=== PATIENT | female | born 1935 | race African-American/Black ===

== ENCOUNTER 2018-04-26 00:25 | Emergency (ER) | payer MEDICARE ==
--- NOTE | 2018-04-26 01:43 | ER Document Report ---
ED General - General Chief Complaint: Abdominal Pain Stated Complaint: ABDOMINAL PAIN, UNBALANCED Time Seen by Provider: 04/26/18 01:16 Mode of Arrival: Ambulatory Information source: Relative, [facility] Records Cannot obtain history due to: Dementia Notes: 83-year-old female with hypertension, dementia, type 1 diabetes presents with her daughter who is concerned for weakness, a recent fall and patient's brief complaint of having "something sticking her stomach". At baseline patient is alert and oriented x1. Daughter reports that this is the patient's baseline. She states that just prior to arrival she heard a loud thud and found her mother on the bedroom floor. She was awake when she was found and attempting to get up. Daughter reports that it is a carpeted floor. Because of the patient's dementia she is unable to provide any history. Patient does have a history of recurrent UTIs with similar symptoms. Daughter denies any recent fever, cough, vomiting, diarrhea. Patient was asked multiple times if she was in pain and does not answer. She intermittently follows commands. She does move all 4 extremity's. TRAVEL OUTSIDE OF THE [place] IN LAST 30 DAYS: No - HPI Onset: Just prior to arrival Onset/Duration: Gradual Associated symptoms: Weakness. denies: Nonproductive cough, Productive cough, Diarrhea, Vomiting - Related Data Allergies/Adverse Reactions: No Known Allergies Allergy (Verified 04/26/18 01:23) Past Medical History - General Information source: Relative, [facility] Records - Social History Smoking Status: Never Smoker Frequency of alcohol use: None Drug Abuse: None Lives with: Family Family History: Reviewed & Not Pertinent Patient has suicidal ideation: No Patient has homicidal ideation: No - Past Medical History Cardiac Medical History: Reports: Hx Hypertension Endocrine Medical History: Reports: Hx Diabetes Mellitus Type 1 Renal/ Medical History: Denies: Hx Peritoneal Dialysis Past Surgical History: Reports: Hx Hysterectomy Review of Systems - Review of Systems -: Yes ROS unobtainable due to patient's medical condition Physical Exam - Vital signs Vitals: Temp Pulse Resp BP Pulse Ox 98.3 F 93 16 195/72 H 98 04/26/18 00:49 04/26/18 00:49 04/26/18 00:49 04/26/18 00:49 04/26/18 00:49 - Notes Notes: PHYSICAL EXAMINATION: GENERAL: Well-appearing, well-nourished and in no acute distress. HEAD: Atraumatic, normocephalic. EYES: Pupils equal round and reactive to light, extraocular movements intact, conjunctiva are normal. ENT: Nares patent, oropharynx clear without exudates. Moist mucous membranes. NECK: Normal range of motion, supple without lymphadenopathy. No midline tenderness. LUNGS: Breath sounds clear to auscultation bilaterally and equal. No wheezes rales or rhonchi. HEART: Regular rate and rhythm without murmurs ABDOMEN: Soft, nontender, nondistended abdomen. No guarding, no rebound. No masses appreciated. Female : deferred Musculoskeletal: Normal range of motion, no pitting or edema. No cyanosis. 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 PSYCH: Normal mood, normal affect. SKIN: Warm, Dry, normal turgor, no rashes or lesions noted. Course - Re-evaluation Re-evalutation: Laboratory 04/26/18 04/26/18 04/26/18 01:30 01:44 03:10 WBC 9.1 RBC 4.36 Hgb 11.7 L Hct 35.8 L MCV 82 MCH 26.9 L MCHC 32.7 RDW 14.9 H Plt Count 263 Seg Neutrophils % 63.4 Lymphocytes % 27.5 Monocytes % 7.5 Eosinophils % 0.5 Basophils % 1.1 Absolute Neutrophils 5.7 Absolute Lymphocytes 2.5 Absolute Monocytes 0.7 Absolute Eosinophils 0.0 Absolute Basophils 0.1 Sodium Potassium Chloride Carbon Dioxide Anion Gap BUN Creatinine Est GFR ( Amer) Est GFR (Non-Af Amer) Glucose POC Glucose 190 H Calcium Total Bilirubin Direct Bilirubin Neonat Total Bilirubin Neonat Direct Bilirubin Neonat Indirect Bili AST ALT Alkaline Phosphatase Creatine Kinase CK-MB (CK-2) Troponin I Total Protein Albumin Lipase Urine Color DARK YELLOW Urine Appearance CLOUDY Urine pH 5.0 Ur Specific Glenvil 1.014 Urine Protein 30 H Urine Glucose (UA) NEGATIVE Urine Ketones 20 H Urine Blood SMALL H Urine Nitrite NEGATIVE Urine Bilirubin NEGATIVE Urine Urobilinogen NEGATIVE Ur Leukocyte Esterase MODERATE H Urine WBC (Auto) 43 Urine RBC (Auto) 2 Urine Bacteria (Auto) 3+ Squamous Epi Cells Auto <1 Amorphous Sediment Auto TRACE Urine Mucus (Auto) RARE Urine Ascorbic Acid NEGATIVE 04/26/18 04/26/18 03:10 03:10 WBC RBC Hgb Hct MCV MCH MCHC RDW Plt Count Seg Neutrophils % Lymphocytes % Monocytes % Eosinophils % Basophils % Absolute Neutrophils Absolute Lymphocytes Absolute Monocytes Absolute Eosinophils Absolute Basophils Sodium 134.9 L Potassium 4.4 Chloride 99 Carbon Dioxide 25 Anion Gap 11 BUN 14 Creatinine 1.08 Est GFR ( Amer) 58 L Est GFR (Non-Af Amer) 48 L Glucose 183 H POC Glucose Calcium 9.7 Total Bilirubin 0.6 Direct Bilirubin 0.3 Neonat Total Bilirubin Not Reportable Neonat Direct Bilirubin Not Reportable Neonat Indirect Bili Not Reportable AST 19 ALT 18 Alkaline Phosphatase 82 Creatine Kinase 95 CK-MB (CK-2) < 0.22 Troponin I < 0.012 Total Protein 7.5 Albumin 3.9 Lipase 77.7 Urine Color Urine Appearance Urine pH Ur Specific Glenvil Urine Protein Urine Glucose (UA) Urine Ketones Urine Blood Urine Nitrite Urine Bilirubin Urine Urobilinogen Ur Leukocyte Esterase Urine WBC (Auto) Urine RBC (Auto) Urine Bacteria (Auto) Squamous Epi Cells Auto Amorphous Sediment Auto Urine Mucus (Auto) Urine Ascorbic Acid Cervical Spine CT 04/26/18 01:27 IMPRESSION: 1. No acute intracranial abnormality. 2. No acute fracture or subluxation of the cervical spine TECHNICAL DOCUMENTATION: Quality ID # 436: Final reports with documentation of one or more dose reduction techniques (e.g., Automated exposure control, adjustment of the mA and/or kV according to patient size, use of iterative reconstruction technique) 2010 [employer]- All Rights Reserved Head CT 04/26/18 01:27 IMPRESSION: 1. No acute intracranial abnormality. 2. No acute fracture or subluxation of the cervical spine TECHNICAL DOCUMENTATION: Quality ID # 436: Final reports with documentation of one or more dose reduction techniques (e.g., Automated exposure control, adjustment of the mA and/or kV according to patient size, use of iterative reconstruction technique) 2010 [employer]- All Rights Reserved Abdomen/Pelvis CT 04/26/18 01:28 IMPRESSION: No definite acute inflammatory process. No pneumonia. Chest X-Ray 04/26/18 01:28 IMPRESSION: Small left lower lobar pneumonia/atelectasis. Recommend CR/CT surveillance including at 7-12 weeks following initiation of any clinically warranted therapy. Chest CT 04/26/18 02:48 IMPRESSION: No definite acute inflammatory process. No pneumonia. Temp Pulse Resp BP Pulse Ox 98.3 F 93 11 L 198/78 H 98 04/26/18 00:49 04/26/18 00:49 04/26/18 04:04 04/26/18 01:20 04/26/18 04:04 04/26/18 02:50 83-year-old female with hypertension, dementia, type 1 diabetes presents with her daughter who is concerned for weakness, a recent fall and patient's brief complaint of having "something sticking her stomach". At baseline patient is alert and oriented x1. Daughter reports that this is the patient's baseline. She states that just prior to arrival she heard a loud thud and found her mother on the bedroom floor. She was awake when she was found and attempting to get up. Daughter reports that it is a carpeted floor. Because of the patient's dementia she is unable to provide any history. Patient does have a history of recurrent UTIs with similar symptoms. Daughter denies any recent fever, cough, vomiting, diarrhea. Patient was asked multiple times if she was in pain and does not answer. She intermittently follows commands. She does move all 4 extremity's. Vital signs reviewed and within normal limits. Patient is afebrile, mildly hypertensive, not hypoxic. Urinalysis consistent with urinary tract infection. Chest x-ray concerning for pneumonia/atelectasis and recommend CT chest. Patient presents with symptoms consistent with an acute cystitis. Vitals wnl. No history of fever, flank pain, or constitution symptoms to suggest ascending infection at this time. Patient is well in appearance, tolerating oral intake without difficulty. No focal abdominal tenderness to suggest acute appendicitis, biliary pathology, acute pancreatitis , tubo-ovarian abscesses, or pelvic inflammatory disease. Patient will be started on antibiotics at this time. A culture has been sent. They will be discharged with return precautions and follow-up recommendations. Patient ambulating throughout the department without difficulty. Patient was evaluated and treated as appropriate for the patient's presenting symptoms and complaint, with consideration of any critical or life threatening conditions that may be associated with their obtained history and exam as noted above. All results were discussed with patient and her daughter. Patient provided the opportunity to ask questions, and express concerns. Patient was educated on treatments based on their presumed diagnosis as noted above. At this time we will discharge the patient with return precautions and follow-up recommendations. Verbal discharge instructions given a the bedside. Medication warnings reviewed. Patient is in agreement with this plan and has verbalized understanding of return precautions. After careful consideration I feel that that patient can be safely discharged from the emergency department, they were advised to followup with a primary care physician in 2-3 days. Dictation on this chart was performed using voice recognition software and may result in unintended grammatical, spelling, syntax or errors. 04/26/18 02:50 04/26/18 03:55 04/26/18 04:43 04/26/18 04:47 - Vital Signs Vital signs: Temp Pulse Resp BP Pulse Ox 98.3 F 93 11 L 198/78 H 98 04/26/18 00:49 04/26/18 00:49 04/26/18 04:04 04/26/18 01:20 04/26/18 04:04 - Laboratory Result Diagrams: 04/26/18 03:10 04/26/18 03:10 Laboratory results interpreted by me: 04/26/18 04/26/18 04/26/18 01:30 01:44 03:10 Hgb 11.7 L Hct 35.8 L MCH 26.9 L RDW 14.9 H Sodium Est GFR ( Amer) Est GFR (Non-Af Amer) Glucose POC Glucose 190 H Urine Protein 30 H Urine Ketones 20 H Urine Blood SMALL H Ur Leukocyte Esterase MODERATE H 04/26/18 03:10 Hgb Hct MCH RDW Sodium 134.9 L Est GFR ( Amer) 58 L Est GFR (Non-Af Amer) 48 L Glucose 183 H POC Glucose Urine Protein Urine Ketones Urine Blood Ur Leukocyte Esterase - Diagnostic Test Radiology reviewed: Image reviewed, Reports reviewed - EKG Interpretation by Me EKG shows normal: Sinus rhythm Rate: Normal Rhythm: NSR Voltage: Increased voltage - T wave inversion in lead III., Consistant with LVH When compared to previous EKG there are: Previous EKG unavailable Discharge - Discharge Clinical Impression: UTI (urinary tract infection) Qualifiers: Urinary tract infection type: site unspecified Hematuria presence: with hematuria Qualified Code(s): N39.0 - Urinary tract infection, site not specified Hypertension Qualifiers: Hypertension type: unspecified Qualified Code(s): I10 - Essential (primary) hypertension Dementia Qualifiers: Dementia type: unspecified type Dementia behavioral disturbance: without behavioral disturbance Qualified Code(s): F03.90 - Unspecified dementia without behavioral disturbance Fall Qualifiers: Encounter type: initial encounter Qualified Code(s): W19.XXXA - Unspecified fall, initial encounter Condition: Good Disposition: HOME, SELF-CARE Instructions: Dementia ([facility]), Urinary Tract Infection ([facility]) Additional Instructions: Your urine shows findings consistent with a urinary tract infection. Please take all the antibiotics as directed even if your symptoms have improved. Please follow-up with your primary care physician as needed. Return to emergency room if you develop fever >101F, persistent vomiting, become lethargic , have severe pain in your sides, or any other symptoms that are concerning to you. You have been seen in the Emergency Department (ED) today following a fall. Your workup today did not reveal any injuries that require you to stay in the hospital. You can expect, though, to be stiff and sore for the next several days. You can take Tylenol 1000 mg every 6 hours as needed for pain. You can apply a hot pack or electric heating pad to the sore areas. You can also use topical "Aspercreme with lidocaine" to sore areas as needed. Please follow up with your primary care doctor as soon as possible regarding today's ED visit and your recent fall. Call your doctor or return to the ED if you develop a sudden or severe headache , confusion, slurred speech, facial droop, weakness or numbness in any arm or leg, extreme fatigue, vomiting more than two times, severe abdominal pain, or other symptoms that concern you. Prescriptions: Cephalexin Monohydrate [Keflex 500 mg Capsule] 500 mg PO BID 7 Days #14 capsule Forms: Elevated Blood Pressure Referrals: LILLY SOTO MD [Primary Care Provider] - Follow up in 3-5 days
[2018-04-26 02:09] LABS: AMORPHOUS SEDIMENT,URINE TRACE /HPF; APPEARANCE,URINE CLOUDY; BILIRUBIN,URINE NEGATIVE (NEGATIVE); COLOR,URINE DARK YELLOW; GLUCOSE, URINE NEGATIVE (NEGATIVE); KETONES,URINE 20 mg/dL (NEGATIVE); LEUKOCYTE ESTERASE,URINE MODERATE (NEGATIVE); NITRITE,URINE NEGATIVE (NEGATIVE); PROTEIN,URINE 30 mg/dL (NEGATIVE); URINE SPECIFIC GRAVITY 1.014; UROBILINOGEN,URINE NEGATIVE mg/dL (<2.0)
[2018-04-26] MEDS ORDERED: NORMAL SALINE 500 ML IV ONE (02:14)
[2018-04-26] MEDS ORDERED: CEFTRIAXONE 1 GM/D5W RTU 1 GM/50 ML RTUPB IV ONE (02:14)
--- NOTE | 2018-04-26 02:37 | RADIOLOGY REPORT (SQ) ---
EXAM DESCRIPTION: XR CHEST 2 VIEWS COMPLETED DATE/TME: 04/26/2018 01:28 CLINICAL HISTORY: 83 years Female, weakness COMPARISON: None. FINDINGS: Adequate lung volume, elevated left hemidiaphragm, small patchy opacity at the left lateral lung base, prominent interstitium, normal cardiac silhouette, and intact bony thorax. IMPRESSION: Small left lower lobar pneumonia/atelectasis. Recommend CR/CT surveillance including at 7-12 weeks following initiation of any clinically warranted therapy.
[2018-04-26] MEDS ORDERED: DOXYCYCLINE HYCLATE 100 MG TABLET PO ONE (02:45)
--- NOTE | 2018-04-26 02:55 | RADIOLOGY REPORT (SQ) ---
EXAM DESCRIPTION: CT CERVICAL SPINE WITHOUT IV CONTRAST, CT HEAD WITHOUT IV CONTRAST COMPLETED DATE/TME: 04/26/2018 01:27 CLINICAL HISTORY: 83 years, Female, fall COMPARISON: None. TECHNIQUE: Axial CT images of the head were obtained without contrast. Sagittal and coronal reformats were performed. DLP 979. Axial CT images of the cervical spine were obtained without contrast. Sagittal and coronal reformats were performed. DLP 551 Images stored on PACS. All CT scanners at this facility use dose modulation, iterative reconstruction, and/or weight based dosing when appropriate to reduce radiation dose to as low as reasonably achievable (ALARA). [facility]: Dose Right [facility]: CareDose [facility]: Dose Right [facility]: Teradose 4D [facility]: [email or web address] LIMITATIONS: None. FINDINGS: CT head: There is no acute infarct, hemorrhage, mass, edema, hydrocephalus, or extra-axial fluid collection. There is mild diffuse cerebral atrophy with mild periventricular and deep white matter chronic microvascular changes. The paranasal sinuses and mastoid air cells are clear. There is no acute fracture. CT C spine: The alignment of the cervical spine is satisfactory. There is no acute fracture or subluxation. The vertebral heights are maintained. The craniocervical junction is intact. There is multilevel facet arthropathy with multilevel neural foraminal narrowing, most notably on the left at C3-C4 with mild narrowing at this level secondary to facet arthropathy. There is also mild narrowing on the right at C3-C4, C4-C5, and C5-C6 secondary to facet arthropathy. The prevertebral soft tissues are normal. The visualized lung apices are clear. IMPRESSION: 1. No acute intracranial abnormality. 2. No acute fracture or subluxation of the cervical spine TECHNICAL DOCUMENTATION: Quality ID # 436: Final reports with documentation of one or more dose reduction techniques (e.g., Automated exposure control, adjustment of the mA and/or kV according to patient size, use of iterative reconstruction technique) 2010 [employer]- All Rights Reserved
[2018-04-26 03:35] LABS: ABSOLUTE BASOPHILS # (AUTO) 0.1 10^3/uL (0.0-0.2); ABSOLUTE LYMPHOCYTES (AUTO) 2.5 10^3/uL (0.5-4.7); ABSOLUTE MONOCYTES (AUTO) 0.7 10^3/uL (0.1-1.4); ABSOLUTE NEUT (AUTO) 5.7 10^3/uL (1.7-8.2); BASOPHILS % (AUTO) 1.1 % (0-2); EOSINOPHILS % (AUTO) 0.5 % (0-6); HEMATOCRIT 35.8 % (36.0-47.0); HEMOGLOBIN 11.7 g/dL (12.0-15.5); LYMPHOCYTES % (AUTO) 27.5 % (13-45); MEAN CORPUSCULAR HEMOGLOBIN 26.9 pg (27.0-33.4); MEAN CORPUSCULAR HGB CONC 32.7 g/dL (32.0-36.0); MEAN CORPUSCULAR VOLUME 82 fl (80-97); MONOCYTES % (AUTO) 7.5 % (3-13); PLATELET COUNT 263 10^3/uL (150-450); RED BLOOD COUNT 4.36 10^6/uL (3.72-5.28); RED CELL DISTRIBUTION WIDTH 14.9 % (11.5-14.0); SEGMENTED NEUTROPHILS % (AUTO) 63.4 % (42-78); TOTAL CELLS COUNTED % (AUTO) 100 %; WHITE BLOOD COUNT 9.1 10^3/uL (4.0-10.5)
[2018-04-26 03:37] LABS: ALANINE AMINOTRANSFERASE 18 U/L (9-52); ALBUMIN 3.9 g/dL (3.5-5.0); ALKALINE PHOSPHATASE 82 U/L (38-126); ANION GAP 11 (5-19); ASPARTATE AMINO TRANSFERASE 19 U/L (14-36); BILIRUBIN,DIRECT 0.3 mg/dL (0.0-0.4); BILIRUBIN,TOTAL 0.6 mg/dL (0.2-1.3); BLOOD UREA NITROGEN 14 mg/dL (7-20); CALCIUM 9.7 mg/dL (8.4-10.2); CARBON DIOXIDE 25 mmol/L (22-30); CHLORIDE 99 mmol/L (98-107); CREATINE KINASE 95 U/L (30-135); GLUCOSE 183 mg/dL (75-110); LIPASE 77.7 U/L (23-300); POTASSIUM 4.4 mmol/L (3.6-5.0); SODIUM 134.9 mmol/L (137-145); TOTAL PROTEIN 7.5 g/dL (6.3-8.2)
[2018-04-26 03:53] LABS: CREATINE KINASE MB < 0.22 ng/mL (<4.55); TROPONIN I < 0.012 ng/mL
--- NOTE | 2018-04-26 04:24 | RADIOLOGY REPORT (SQ) ---
CLINICAL HISTORY: ?pneumonia COMPARISON: None. TECHNIQUE: CT CHEST WITH IV CONTRAST, CT ABDOMEN PELVIS WITH IV CONTRAST on 04/26/2018 2:48 AM [employer] TECHNICIAN. MIPS reconstructions were generated. This exam was performed according to our departmental dose-optimization program, which includes automated exposure control, adjustment of the mA and/or kV according to patient size and/or use of iterative reconstruction technique. FINDINGS: Vascular: Thoracic aorta is normal in course and caliber without aneurysm or dissection. Abdominal aorta is normal in course and caliber without aneurysm. Pelvic arteries are patent without aneurysm or occlusion. Chest: The heart is normal in size. There is no pericardial effusion. Intrathoracic lymph nodes are not enlarged. There is no pleural effusion, pleural thickening or pneumothorax. Central airways are patent. There is mild bibasilar atelectasis and scarring. Abdomen: The liver is normal in appearance. There is no biliary dilatation. Gallbladder is normal in appearance. The pancreas and spleen are normal in appearance. The adrenal glands and kidneys are unremarkable. There is no free air. There is no retroperitoneal adenopathy. Pelvis: There is moderate distal colonic diverticulosis. Urinary bladder is unremarkable. There is no free fluid. Appendix is normal. Skeleton: There are no acute osseous findings. No suspicious bony lesions. IMPRESSION: No definite acute inflammatory process. No pneumonia.
[2018-04-26 05:23] VITALS: BP 192/83
--- NOTE | 2018-04-26 07:40 | EKG REPORT ---
SEVERITY:- ABNORMAL ECG - SINUS RHYTHM LEFT VENTRICULAR HYPERTROPHY BORDERLINE T ABNORMALITIES, INFERIOR LEADS : Confirmed by: Pranav Meyer MD 26-Apr-2018 07:39:38
== END 2018-04-26 04:23 | disposition home or self-care (01) ==
LOC: ER 00:25
DX: Z04.3 Encounter for examination and observation following other accident (principal); N39.0 Urinary tract infection, site not specified; R31.9 Hematuria, unspecified; I10 Essential (primary) hypertension; E10.9 Type 1 diabetes mellitus without complications; R53.1 Weakness; R19.8 Other specified symptoms and signs involving the digestive system and abdomen; F03.90 Unspecified dementia, unspecified severity, without behavioral disturbance, psychotic disturbance, mood disturbance, and anxiety
CPT/HCPCS: 93005; 99285; 96361; 51701; 96365; 36415; 87040; 82553; 82962; 82550; 83690; 85025; 80053; 81001; 84484; 71046; 70450; 71260; 72125; 74177; 93010; A9270; J7040; J0696

== ENCOUNTER 2018-05-11 09:08 | Inpatient (IN) | payer MEDICARE ==
[2018-05-11] MEDS ORDERED: PIPERACILLIN/TAZOBACTAM 4.5 GM VIAL IV ONE (09:26)
[2018-05-11] MEDS ORDERED: NORMAL SALINE 1000 ML 1,000 ML IV ONE (09:26)
[2018-05-11 11:01] LABS: APPEARANCE,URINE CLEAR; BILIRUBIN,URINE NEGATIVE (NEGATIVE); COLOR,URINE YELLOW; GLUCOSE, URINE 50 mg/dL (NEGATIVE); KETONES,URINE 20 mg/dL (NEGATIVE); LEUKOCYTE ESTERASE,URINE LARGE (NEGATIVE); NITRITE,URINE NEGATIVE (NEGATIVE); PROTEIN,URINE 30 mg/dL (NEGATIVE); URINE SPECIFIC GRAVITY 1.023
[2018-05-11 11:12] LABS: ABSOLUTE BASOPHILS # (AUTO) 0.1 10^3/uL (0.0-0.2); ABSOLUTE EOSINOPHILS # (AUTO) 0.2 10^3/uL (0.0-0.6); ABSOLUTE LYMPHOCYTES (AUTO) 2.3 10^3/uL (0.5-4.7); ABSOLUTE MONOCYTES (AUTO) 0.8 10^3/uL (0.1-1.4); BASOPHILS % (AUTO) 0.5 % (0-2); EOSINOPHILS % (AUTO) 2.2 % (0-6); HEMATOCRIT 40.1 % (36.0-47.0); HEMOGLOBIN 13.1 g/dL (12.0-15.5); LYMPHOCYTES % (AUTO) 22.2 % (13-45); MEAN CORPUSCULAR HEMOGLOBIN 26.8 pg (27.0-33.4); MEAN CORPUSCULAR HGB CONC 32.7 g/dL (32.0-36.0); MEAN CORPUSCULAR VOLUME 82 fl (80-97); MONOCYTES % (AUTO) 7.9 % (3-13); PLATELET COUNT 362 10^3/uL (150-450); RED BLOOD COUNT 4.91 10^6/uL (3.72-5.28); SEGMENTED NEUTROPHILS % (AUTO) 67.2 % (42-78); TOTAL CELLS COUNTED % (AUTO) 100 %; WHITE BLOOD COUNT 10.4 10^3/uL (4.0-10.5)
[2018-05-11 11:13] LABS: VENOUS BLOOD BASE EXCESS -1.1 mmol/L; VENOUS BLOOD HCO3 25.3 mmol/L (20-32); VENOUS BLOOD PCO2 48.7 mmHg (35-63); VENOUS BLOOD PH 7.33 (7.30-7.42)
--- NOTE | 2018-05-11 11:23 | ER Document Report ---
ED General - General Chief Complaint: Altered Mental Status Stated Complaint: AMS Time Seen by Provider: 05/11/18 09:26 Mode of Arrival: Medic Information source: Relative Cannot obtain history due to: Altered mental status TRAVEL OUTSIDE OF THE [place] IN LAST 30 DAYS: No - HPI Patient complains to provider of: Weakness Onset: Other - 83-year-old female that presents for evaluation of unresponsiveness over the last 3 days as well as inability to move or walk and communicate. She had previously been seen for urinary tract infection for which she had been discharged home but thereafter she was seen doing okay and then 3 days ago she stopped being able to get a bed. Her son notes that she has not been able to talk, has a minimal take her medications, has not available to help with transfers. - Related Data Allergies/Adverse Reactions: No Known Allergies Allergy (Verified 05/11/18 11:45) Past Medical History - General Information source: Relative Cannot obtain history due to: Altered mental status - Social History Smoking Status: Never Smoker Chew tobacco use (# tins/day): Yes Frequency of alcohol use: None Drug Abuse: None Family History: Reviewed & Not Pertinent Patient has suicidal ideation: No Patient has homicidal ideation: No - Past Medical History Cardiac Medical History: Reports: Hx Hypertension Endocrine Medical History: Reports: Hx Diabetes Mellitus Type 1 Renal/ Medical History: Denies: Hx Peritoneal Dialysis Past Surgical History: Reports: Hx Hysterectomy Review of Systems - Review of Systems -: Yes ROS unobtainable due to patient's medical condition Physical Exam - Vital signs Vitals: Resp BP Pulse Ox 22 H 182/75 H 97 05/11/18 09:22 05/11/18 09:22 05/11/18 09:22 - General General appearance: Lethargic In distress: Moderate - HEENT Head: Normocephalic Eyes: Other - Profound right gaze deviation Conjunctiva: Normal Cornea: Normal Extraocular movements intact: No - Right gaze deviation Pupils: PERRL - Respiratory Respiratory status: No respiratory distress Chest status: Nontender Breath sounds: Normal - Cardiovascular Rhythm: Regular Heart sounds: Normal auscultation - Abdominal Inspection: Normal Bowel sounds: Normal Tenderness: Nontender - Back Back: Normal - Extremities General upper extremity: Normal inspection, Other - 0 out of 5 strength in the left upper extremity 0 out of 5 strength in the left lower extremity General lower extremity: Normal inspection - Neurological Neuro grossly intact: No Cognition: Inattentive Orientation: Disoriented to person, Disoriented to place, Disoriented to time, Disoriented to events [place] Coma Scale Eye Opening: Spontaneous [place] Coma Scale Verbal: Incomprehensible [place] Coma Scale Motor: Localizes to Pain [place] Coma Scale Total: 11 Speech: Expressive aphasia, Receptive aphasia Cranial nerves: Gaze palsy, Sensory deficit, Tongue deviation Motor strength normal: RUE, RLE - Psychological Associated symptoms: Confused, Restlessness Course - Re-evaluation Re-evalutation: 05/11/18 16:12 This is an 83-year-old female who presents for evaluation of altered mental status. Have been treated for urinary tract infection previously and over the last 3 days has been unable to walk or move or communicate normally. On initial evaluation this patient has an obvious profound gaze deviation to the right with flaccid paralysis of the left side consistent with a dense right- sided MCA territory CVA. Sent immediately for CAT scan, her last known normal is at least 72 hours prior. Given her profound cognitive issues including dementia as well as ongoing infections at baseline as well as her age she is a poor candidate for any lytic therapy, and speaking to the son he notes that she has been sick exactly like this over the last 3 days though because she was continuing to be weak today he decided to bring her to the emergency room. We will also obtain labs in case of potential developing infectious symptoms related to this, will administer Zosyn for her possible urinary tract infection. Due to issues relating to radiology reporting there was a slight delay in obtaining CT results for the head which confirmed right-sided CVA with near total loss of the castellano matter on the right hemisphere. Because of this patient's profound deficits as well as inability to communicate at this time will speak to the hospitalist as I think she would benefit from admission, did speak to the family about CODE STATUS, they do not have a known CODE STATUS at this time. At this time the patient is hemodynamically stable with a slight elevation in her blood pressure likely appropriate for her known CVA. On-call hospitalist Dr. Dueñas has agreed to admit this patient for further ongoing management and monitoring. We will plan for this patient to go likely to a stepdown unit for concern of potential repeat CVA. At this time she is n.p.o. given her marked deficits and concern for aspiration risk. - Vital Signs Vital signs: Temp Pulse Resp BP Pulse Ox 97.7 F 74 16 190/67 H 98 05/11/18 15:11 05/11/18 15:22 05/11/18 15:22 05/11/18 15:22 05/11/18 15:22 - Laboratory Result Diagrams: 05/11/18 10:59 05/11/18 10:59 Laboratory results interpreted by me: 05/11/18 05/11/18 05/11/18 10:02 10:25 10:59 MCH 26.8 L RDW 15.0 H Est GFR (Non-Af Amer) Glucose POC Glucose 126 H Lactic Acid AST Total Protein Urine Protein 30 H Urine Glucose (UA) 50 H Urine Ketones 20 H Urine Blood SMALL H Urine Urobilinogen 2.0 H Ur Leukocyte Esterase LARGE H 05/11/18 05/11/18 10:59 10:59 MCH RDW Est GFR (Non-Af Amer) 51 L Glucose 150 H POC Glucose Lactic Acid 2.2 H AST 60 H Total Protein 8.8 H Urine Protein Urine Glucose (UA) Urine Ketones Urine Blood Urine Urobilinogen Ur Leukocyte Esterase Discharge - Discharge Clinical Impression: Hemineglect, Aphasia CVA (cerebral vascular accident) Qualifiers: CVA mechanism: unspecified Qualified Code(s): I63.9 - Cerebral infarction, unspecified Hypertension Qualifiers: Hypertension type: unspecified Qualified Code(s): I10 - Essential (primary) hypertension UTI (urinary tract infection) Qualifiers: Urinary tract infection type: site unspecified Hematuria presence: without hematuria Qualified Code(s): N39.0 - Urinary tract infection, site not specified Condition: Serious Disposition: ADMITTED INPATIENT Admitting Provider: Hospitalist Unit Admitted: IMCU
[2018-05-11 11:38] LABS: ALANINE AMINOTRANSFERASE 35 U/L (9-52); ALBUMIN 4.4 g/dL (3.5-5.0); ALKALINE PHOSPHATASE 110 U/L (38-126); ANION GAP 15 (5-19); ASPARTATE AMINO TRANSFERASE 60 U/L (14-36); BILIRUBIN,DIRECT 0.4 mg/dL (0.0-0.4); BILIRUBIN,TOTAL 0.7 mg/dL (0.2-1.3); BLOOD UREA NITROGEN 19 mg/dL (7-20); CALCIUM 10.1 mg/dL (8.4-10.2); CARBON DIOXIDE 24 mmol/L (22-30); CHLORIDE 103 mmol/L (98-107); GLUCOSE 150 mg/dL (75-110); POTASSIUM 4.6 mmol/L (3.6-5.0); SODIUM 142.2 mmol/L (137-145); TOTAL PROTEIN 8.8 g/dL (6.3-8.2)
--- NOTE | 2018-05-11 12:12 | RADIOLOGY REPORT (SQ) ---
EXAM DESCRIPTION: CT HEAD WITHOUT COMPLETED DATE/TIME: 05/11/2018 9:28 am REASON FOR STUDY: stroke, right sided motor strip COMPARISON: 04/26/2018 TECHNIQUE: Axial images acquired through the brain without intravenous contrast. Images reviewed wi th bone, brain and subdural windows. Additional sagittal and coronal reconstructions were generated. Images stored on PACS. All CT scanners at this facility use dose modulation, iterative reconstruction, and/or weight based d osing when appropriate to reduce radiation dose to as low as reasonably achievable (ALARA). [facility]: Dose Right [facility]: CareDose [facility]: Dose Right [facility]: Teradose 4D [facility]: [email or web address] RADIATION DOSE: mGy. LIMITATIONS: None. FINDINGS: VENTRICLES: Mildly prominent compatible with parenchymal atrophy. CEREBRUM: There is a large area of hypoattenuation involving the right MCA territory (right frontal, parietal, occipital lobes and basal ganglia). There is associated patchy areas of loss of castellano-white differentiation compatible with acute infarct. No significant mass effect or midline shift. No bowen dence of intracranial or intraparenchymal blood products. CEREBELLUM: No masses. No hemorrhage. No alteration of density. No evidence for acute infarction. EXTRAAXIAL SPACES: No fluid collections. No masses. ORBITS AND GLOBE: No intra- or extraconal masses. Normal contour of globe without masses. Bilateral cataract surgery. CALVARIUM: No fracture. PARANASAL SINUSES: No fluid or mucosal thickening. SOFT TISSUES: No mass or hematoma. OTHER: No other significant finding. IMPRESSION: Large area of hypoattenuation involving the right MCA territory compatible with acute in farct. No evidence of intracranial hemorrhage or significant mass effect. EVIDENCE OF ACUTE STROKE: YES. RIGHT MCA. COMMENT: Pertinent findings on the imaging study reported as a CRITICAL RESULT to Dr. Henley at10:11 on 05/11/2018. Category of Critical Result: Acute infarct, right MCA territory Quality ID # [id number]: Final reports with documentation of one or more dose reduction techniques (e.g., Au tomated exposure control, adjustment of the mA and/or kV according to patient size, use of iterative reconstruction technique) TECHNICAL DOCUMENTATION: JOB ID: [id number] [email or web address]- All Rights Reserved Reading location - IP/workstation name: [email or web address]
--- NOTE | 2018-05-11 12:12 | RADIOLOGY REPORT (SQ) ---
EXAM DESCRIPTION: CHEST SINGLE VIEW COMPLETED DATE/TIME: 05/11/2018 9:28 am REASON FOR STUDY: sepsis COMPARISON: 04/26/2018 EXAM PARAMETERS: NUMBER OF VIEWS: One view. TECHNIQUE: Single frontal radiographic view of the chest acquired. RADIATION DOSE: NA LIMITATIONS: None. FINDINGS: LUNGS AND PLEURA: Left base mild parenchymal density, may represent infiltrate/atelectasi s. The right lung remains clear. No pneumothorax or pleural effusion. MEDIASTINUM AND HILAR STRUCTURES: No masses. Contour normal. HEART AND VASCULAR STRUCTURES: Heart normal in size. Normal vasculature. BONES: No acute findings. HARDWARE: None in the chest. OTHER: No other significant finding. IMPRESSION: 1. Mild parenchymal density in the left base, may be on the basis of infiltrate/atelect asis. This finding was also suggested on the prior study dated 04/26/2018. TECHNICAL DOCUMENTATION: JOB ID: [id number] [employer]- All Rights Reserved Reading location - IP/workstation name: [email or web address]
[2018-05-11] MEDS ORDERED: LABETALOL HCL INJ 20 MG/4 ML DISP.SYRIN IV PRN (12:45)
[2018-05-11] MEDS ORDERED: DEXTROSE 50%-WATER 25 GM/50 ML DISP.SYRIN IV PRN ×2 (12:45)
[2018-05-11] MEDS ORDERED: DEXTROSE 40% GEL 15 GM TUBE PO PRN ×2 (12:45)
[2018-05-11] MEDS ORDERED: GLUCAGON,HUMAN RECOMB 1 MG INJ SUBCUT PRN (12:45)
--- NOTE | 2018-05-11 13:08 | EKG REPORT ---
SEVERITY:- ABNORMAL ECG - SINUS RHYTHM CONSIDER LEFT VENTRICULAR HYPERTROPHY PROBABLE INFERIOR INFARCT, AGE INDETERMINATE : Confirmed by: Zahira Le MD 11-May-2018 13:08:06
[2018-05-11] MEDS: RINGERS SOLUTION,LACTATED 1,000 ML IV PRN (13:57)
[2018-05-11 14:07] LABS: INTERNATIONAL RATION (INR) 1.04; PROTHROMBIN TIME 14.1 SEC (11.4-15.4)
--- NOTE | 2018-05-11 17:11 | PDOC H&P ---
History of Present Illness Admission Date/PCP: 05/11/18 12:18 LILLY SOTO MD History of Present Illness: POLLY PRINCE is a 83 year old female who lives at home with her son and gets help from her family who apparently has not been acting right for the last few days. She apparently has not been walking has not been able to move her left side very well. Her speech is gotten worse. She apparently has been able to eat through all of this. She is a diabetic who does not take her medicine. She also has hypertension and does not take her medicine for that. Family does not know of any history of stroke that she has. A CT scan was done of her head which shows a large right MCA territory infarct that occupies nearly the entire right cerebral hemisphere. Family has decided that they do not want to be aggressive because she would not take any medication anyway. They would just like to have her evaluated by physical therapy and speech therapy to see what her present level of function is and to know what she can and cannot eat, and also to have case management help coordinate any DME or services she could get at home. They wanted her to be a DNR. Past Medical History Cardiac Medical History: Reports: Hypertension Endocrine Medical History: Reports: Diabetes Mellitus Type 1 Past Surgical History Past Surgical History: Reports: Hysterectomy Social History Smoking Status: Never Smoker Frequency of Alcohol Use: Occasional Hx Recreational Drug Use: Yes Drugs: None Hx Prescription Drug Abuse: No - Advance Directive Resuscitation Status: Do Not Resuscitate Family History Family History: Reviewed & Not Pertinent Parental Family History Reviewed: Yes - Noncontributory Children Family History Reviewed: Yes - Noncontributory Sibling(s) Family History Reviewed.: Yes - Noncontributory Medication/Allergy Home Medications: No Home Medications 05/11/18 Allergies/Adverse Reactions: No Known Allergies Allergy (Verified 05/11/18 11:45) Review of Systems ROS unobtainable: Other - Unable to obtain from the patient due to her current medical condition and degree of aphasia Physical Exam Vital Signs: Temp Pulse Resp BP Pulse Ox 97.7 F 74 16 190/67 H 98 05/11/18 15:11 05/11/18 15:22 05/11/18 15:22 05/11/18 15:22 05/11/18 15:22 Intake & Output 05/10/18 05/11/18 05/12/18 06:59 06:59 06:59 Intake Total 1000 Balance 1000 Weight 72.8 kg General appearance: PRESENT: no acute distress, disheveled Head exam: PRESENT: atraumatic, normocephalic Eye exam: PRESENT: EOMI. ABSENT: conjunctival injection, nystagmus Mouth exam: PRESENT: dry mucosa, neck supple Teeth exam: PRESENT: poor dentation Neck exam: ABSENT: carotid bruit, JVD, lymphadenopathy, meningismus, tenderness , thyromegaly Respiratory exam: PRESENT: clear to auscultation adolfo, symmetrical, unlabored. ABSENT: accessory muscle use, rales, rhonchi, tachypnea, wheezes Cardiovascular exam: PRESENT: RRR, +S1, +S2 Vascular exam: PRESENT: normal capillary refill GI/Abdominal exam: PRESENT: normal bowel sounds, soft. ABSENT: distended, guarding, rebound, tenderness Extremities exam: ABSENT: clubbing, pedal edema Musculoskeletal exam: PRESENT: normal inspection. ABSENT: deformity Neurological exam: PRESENT: awake, motor sensory deficit - Cannot move her left side and seems to be neglecting it because she consistently looks to the right and keep her head turned to the right, aphasic. ABSENT: CN II-XII grossly intact - Could not adequately assessed because of her inability to cooperate Psychiatric exam: PRESENT: flat affect Skin exam: PRESENT: dry, warm Results Laboratory Results: 05/11/18 16:00 Lactic Acid 1.7 Impressions: Chest X-Ray 05/11/18 09:26 IMPRESSION: 1. Mild parenchymal density in the left base, may be on the basis of infiltrate/atelectasis. This finding was also suggested on the prior study dated 04/26/2018. Head CT 05/11/18 09:27 IMPRESSION: Large area of hypoattenuation involving the right MCA territory compatible with acute infarct. No evidence of intracranial hemorrhage or significant mass effect. EVIDENCE OF ACUTE STROKE: YES. RIGHT MCA. Assessment & Plan - Diagnosis (1) Acute ischemic right MCA stroke Is this a current diagnosis for this admission?: Yes Plan: Family does not want to be aggressive with her care. They declined to have her treated with an aspirin and a statin because they said she would not take medicine anyway. She has not been taking her blood pressure medicine or her diabetes medicine in months. I put him mortars for some as needed labetalol with parameters. Family does not want any further workup done. They they want to see if she can be evaluated by PT, OT, and ST, and also to see if case management can help them obtain any DME to help take care of her at home and to see what other services, if any, are available. - Time Time Spent: 50 to 70 Minutes - Inpatient Certification Medical Necessity: Need Close Monitoring Due to Risk of Patient Decompensation, Need for Neurological Checks
[2018-05-12] MEDS: RINGERS SOLUTION,LACTATED 1,000 ML IV PRN ×2 (02:11→15:57)
--- NOTE | 2018-05-12 15:58 | PDOC PROGRESS REPORT ---
Subjective Progress Note for:: 05/12/18 Subjective:: Patient's family thinks that she is doing a little bit worse today. Her blood pressures have been up and down. Family says that now she is not even trying to talk at all. Physical therapy came to evaluate her and while I can see exactly the results of the evaluation, I suspect she did not do very well. Speech therapy saw her and she was not able to work with them at all, and they said that she is not safe for any p.o. intake. We tried to give her some sips of water earlier and she immediately began coughing afterwards. Reason For Visit: ACUTE RIGHT MCA ISCHEMIC STROKE Physical Exam Vital Signs: Temp Pulse Resp BP Pulse Ox 98.2 F 62 16 174/59 H 100 05/12/18 12:11 05/12/18 14:00 05/12/18 12:11 05/12/18 12:11 05/12/18 12:11 Intake & Output 05/11/18 05/12/18 05/13/18 06:59 06:59 06:59 Intake Total 1916 Balance 191 Weight 72.6 kg General appearance: PRESENT: no acute distress, disheveled Respiratory exam: PRESENT: clear to auscultation adolfo, symmetrical, unlabored. ABSENT: accessory muscle use, rales, rhonchi, tachypnea, wheezes Cardiovascular exam: PRESENT: RRR, +S1, +S2 Vascular exam: PRESENT: normal capillary refill GI/Abdominal exam: PRESENT: normal bowel sounds, soft. ABSENT: distended, guarding, rebound, tenderness Extremities exam: ABSENT: clubbing, pedal edema Musculoskeletal exam: PRESENT: normal inspection. ABSENT: deformity Neurological exam: PRESENT: awake, motor sensory deficit - Cannot move her left side and seems to be neglecting it because she consistently looks to the right and keep her head turned to the right, aphasic. Skin exam: PRESENT: dry, warm Results Laboratory Results: 05/11/18 16:00 Lactic Acid 1.7 Impressions: Chest X-Ray 05/11/18 09:26 IMPRESSION: 1. Mild parenchymal density in the left base, may be on the basis of infiltrate/atelectasis. This finding was also suggested on the prior study dated 04/26/2018. Head CT 05/11/18 09:27 IMPRESSION: Large area of hypoattenuation involving the right MCA territory compatible with acute infarct. No evidence of intracranial hemorrhage or significant mass effect. EVIDENCE OF ACUTE STROKE: YES. RIGHT MCA. Assessment & Plan - Diagnosis (1) Acute ischemic right MCA stroke Is this a current diagnosis for this admission?: Yes Plan: Her symptoms seem to be progressing, because at least yesterday she would attempt to mumble and she was able to drink from a straw. Today she makes no attempt to communicate, and she is unable to safely take p.o. Family does not want to be aggressive with her care because they have not been able to get any medications into her home they do not think that she be able to, or willing to, take any oral medications. If she does not show any signs of improvement, a conversation should be had about hospice, and I think that the family will be receptive. - Time Time Spent with patient: 15-24 minutes
[2018-05-13] MEDS: RINGERS SOLUTION,LACTATED 1,000 ML IV PRN (06:03)
--- NOTE | 2018-05-13 18:44 | PDOC PROGRESS REPORT ---
Subjective Progress Note for:: 05/13/18 Subjective:: Patient is unable to speak after stroke. I spoke with her daughter who is at the bedside and also her son. The patient lives with her daughter in the local area. She has suffered a large right sided CVA and has left hemiparesis. She has failed her swallow study. She is unable to really do anything on her own at this point. She is opening her eyes and she will squeeze my hand but will not consistently follow commands. The family was under the impression that rehab was their only option and so I talked about the range of options available for this patient and the family at this time including acute rehab which would necessitate a feeding tube given that patient cannot safely swallow on her own. We also talked about hospice as an option to focus on quality of life and comfort. They do not think she is in pain. Does not seem to have any respiratory difficulty at this time. hHe is sleeping most of the day. Reason For Visit: ACUTE RIGHT MCA ISCHEMIC STROKE Physical Exam Vital Signs: Temp Pulse Resp BP Pulse Ox 98.6 F 60 18 186/59 H 99 05/13/18 15:04 05/13/18 15:04 05/13/18 15:04 05/13/18 15:04 05/13/18 15:04 Intake & Output 05/12/18 05/13/18 05/14/18 06:59 06:59 06:59 Intake Total 1916 1999 999 Balance 1916 1999 999 Weight 72.6 kg 76.4 kg General appearance: PRESENT: no acute distress, obese Head exam: PRESENT: atraumatic Eye exam: ABSENT: conjunctival injection, scleral icterus Mouth exam: PRESENT: dry mucosa. ABSENT: neck supple Neck exam: ABSENT: lymphadenopathy Respiratory exam: PRESENT: clear to auscultation adolfo, unlabored. ABSENT: rales , rhonchi, wheezes Cardiovascular exam: PRESENT: RRR. ABSENT: systolic murmur Pulses: PRESENT: normal radial pulses GI/Abdominal exam: PRESENT: normal bowel sounds, soft. ABSENT: distended, tenderness Rectal exam: PRESENT: deferred Gentrourinary exam: PRESENT: indwelling catheter Extremities exam: ABSENT: pedal edema Neurological exam: PRESENT: altered, other - Left hemiparesis. ABSENT: alert, awake, CN II-XII grossly intact Skin exam: PRESENT: other - Cannot assess, she is nonverbal and altered Results Impressions: Chest X-Ray 05/11/18 09:26 IMPRESSION: 1. Mild parenchymal density in the left base, may be on the basis of infiltrate/atelectasis. This finding was also suggested on the prior study dated 04/26/2018. Head CT 05/11/18 09:27 IMPRESSION: Large area of hypoattenuation involving the right MCA territory compatible with acute infarct. No evidence of intracranial hemorrhage or significant mass effect. EVIDENCE OF ACUTE STROKE: YES. RIGHT MCA. Assessment & Plan - Diagnosis (1) Acute ischemic right MCA stroke Is this a current diagnosis for this admission?: Yes Plan: Large right MCA stroke. Left hemiparesis. Patient is unable to communicate, unable to eat or drink. She does open her eyes and she will squeeze my right hand intermittently. Family at this point is not interested in feeding tube. They think that hospice would be more in lines with the patient's wishes versus surgical feeding tube and an attempt at acute rehab. She is protecting her airway currently. sr. merchandise planner has spoken with the family and they have chosen a hospice company, order has been placed. I have discontinued her IV fluids and she can take ice chips for comfort. We will await hospice with the family before we write any further orders. (3) Hypertension Qualifiers: Hypertension type: unspecified Qualified Code(s): I10 - Essential (primary ) hypertension Is this a current diagnosis for this admission?: Yes Plan: Likely secondary to acute stroke. Continue as needed labetalol for extremely elevated blood pressure and otherwise monitor for downward trend which is likely. Consider adding as needed blood pressure control tomorrow should her numbers still be elevated however she will likely be discharged to home hospice soon and patient cannot swallow pills at this time, we will be able to discharge her on oral antihypertensives. IV fluids have been stopped in the case that that is contributing to hypertension. - Time Time Spent with patient: 35 or more minutes Medications reviewed and adjusted accordingly: Yes Anticipated discharge: Hospice - Inpatient Certification Based on my medical assessment, after consideration of the patient's comorbidities, presenting symptoms, or acuity I expect that the services needed warrant INPATIENT care.: Yes I certify that my determination is in accordance with my understanding of Medicare's requirements for reasonable and necessary INPATIENT services [42 CFR 412.3e].: Yes Medical Necessity: Significant Comorbidiites Make Outpatient Treatment Too Risky , Risk of Complication if Not Cared For in Hospital
--- NOTE | 2018-05-14 15:23 | PDOC PROGRESS REPORT ---
Subjective Progress Note for:: 05/14/18 Subjective:: Patient is nonverbal so I am unable to interview her. Daughter is at the bedside and states that her mom told her she wanted water earlier today. We helped the patient drink about a half a cup of water and she did so without choking or aspirating. She was moving her right side a bit in her bed but still has left hemiparesis. The patient's daughter is still interested in taking the patient home on hospice care, we reviewed the options again and again it was clear that the daughter does not think that her mother would want to have a feeding tube. Reason For Visit: ACUTE RIGHT MCA ISCHEMIC STROKE Physical Exam Vital Signs: Temp Pulse Resp BP Pulse Ox 98.4 F 58 L 16 86/67 L 100 05/14/18 11:31 05/14/18 14:00 05/14/18 11:31 05/14/18 11:31 05/14/18 11:31 Intake & Output 05/13/18 05/14/18 05/15/18 06:59 06:59 06:59 Intake Total 1999 1000 Balance 2000 1000 Weight 76.4 kg 75.3 kg General appearance: PRESENT: mild distress Head exam: PRESENT: atraumatic, normocephalic Eye exam: ABSENT: scleral icterus Ear exam: PRESENT: normal external ear exam Mouth exam: PRESENT: dry mucosa Neck exam: ABSENT: lymphadenopathy Respiratory exam: PRESENT: clear to auscultation adolfo, unlabored. ABSENT: rales , rhonchi, wheezes Cardiovascular exam: PRESENT: RRR, systolic murmur Pulses: PRESENT: normal radial pulses GI/Abdominal exam: PRESENT: normal bowel sounds, soft. ABSENT: distended, firm Rectal exam: PRESENT: deferred Extremities exam: ABSENT: pedal edema Musculoskeletal exam: ABSENT: ambulatory Neurological exam: PRESENT: awake, aphasic, other - Dense left hemiparesis, good strength in the right arm, able to move right leg around the bed. ABSENT: oriented to situation Psychiatric exam: PRESENT: flat affect. ABSENT: anxious Skin exam: PRESENT: dry, intact, warm Results Impressions: Chest X-Ray 05/11/18 09:26 IMPRESSION: 1. Mild parenchymal density in the left base, may be on the basis of infiltrate/atelectasis. This finding was also suggested on the prior study dated 04/26/2018. Head CT 05/11/18 09:27 IMPRESSION: Large area of hypoattenuation involving the right MCA territory compatible with acute infarct. No evidence of intracranial hemorrhage or significant mass effect. EVIDENCE OF ACUTE STROKE: YES. RIGHT MCA. Assessment & Plan - Diagnosis (1) Acute ischemic right MCA stroke Is this a current diagnosis for this admission?: Yes Plan: Patient has been seen by physical therapy and speech therapy. I have not really seen improvement in my 2 visits with her. Her daughter does not feel that she has had significant improvement. Her daughter also believes that she would not want to have a surgical feeding tube placed and so she has opted for home hospice care. I have seen the patient drink water without difficulty though I know she is a very large aspiration risk and I have asked the therapist to reassess the patient before she discharges to give the family and idea of food options that may be safer than others while on home hospice as the patient clearly is expressing thirst. sHe will be discharged to home hospice [facility] once arrangements have been made. (2) Aphasia Is this a current diagnosis for this admission?: Yes Plan: Secondary to stroke. (3) Hypertension Qualifiers: Hypertension type: unspecified Qualified Code(s): I10 - Essential (primary ) hypertension Is this a current diagnosis for this admission?: Yes Plan: Blood pressure is now trending down. Patient does not seem uncomfortable. Daughter states that over the last several years she stopped taking her hypertension and diabetic medications and that she was not interested in treating those medical problems anymore. Her blood pressure, again, has trended downward. Now she is slightly hypotensive. At this point I do not think it safe to start anything for her blood pressure and I do not know that it would be safe for her to swallow pills. We will continue to monitor overnight and discuss the issue with the family in the morning. - Time Time Spent with patient: 35 or more minutes Anticipated discharge: Hospice - Inpatient Certification Based on my medical assessment, after consideration of the patient's comorbidities, presenting symptoms, or acuity I expect that the services needed warrant INPATIENT care.: Yes I certify that my determination is in accordance with my understanding of Medicare's requirements for reasonable and necessary INPATIENT services [42 CFR 412.3e].: Yes Medical Necessity: Need Close Monitoring Due to Risk of Patient Decompensation, Risk of Complication if Not Cared For in Hospital
--- NOTE | 2018-05-15 08:54 | PDOC DISCHARGE SUMMARY ---
General - Admit/Disc Date/PCP Admission Date/Primary Care Provider: 05/11/18 12:18 LILLY SOTO MD Discharge Date: 05/15/18 - Discharge Diagnosis (1) Acute ischemic right MCA stroke Is this a current diagnosis for this admission?: Yes Summary: Admitted with large right MCA stroke and left hemiparesis. Pt had stopped taking her BP and diabetes meds months to a year ago. Family requested that she be made DNR, that care be focused on comfort and that she see PT and OT and speech for recommendations for safety and home discharge. For unclear reasons DC to SNF was being arranged thought family did want to take her home. I had a disucssion with daughter about patients options which included SNF and rehab-we discussed that this would necessitate a surgical feeding tube and son and daughter were adamant that she would not want that. So we transitioned to hospice conversation and that given her functional capacity after stroke with a poor prognosis hospice would be a reasonable choice, for comfort care. Family states they thought that she would be happier and do better in the home setting. Hospice choices offered, they chose [facility] who was unable to accept the patient, they then chose [facility] who has accepted her for care in the home. She is being transferred today. (2) Aphasia Is this a current diagnosis for this admission?: Yes Summary: secondary to stokr. SHe has been able to drink water without choking and I asked speech to see her again prior to DC to assist family with safer feeding options. Family is aware that she has huge aspiration risk and they are willing to accept that risk to feed her is she desires. (3) Hypertension Is this a current diagnosis for this admission?: Yes Summary: she stopped taking her BP meds at home and family does not think she would want to take them now. We will recommend that hospice treat any symptoms she may have related to HTN. (4) Diabetes type 2, uncontrolled Is this a current diagnosis for this admission?: Yes Summary: stopped taking diabetic med at home, family does not want her to have aggressive management of her medical problems but to focus on comfort - Additional Information Resuscitation Status: Do Not Resuscitate Discharge Diet: As Tolerated Discharge Activity: Activity As Tolerated, Other - secondary to stroke pt is bedbound at this time Home Medications: No Home Medications 05/11/18 History of Present Illness History of Present Illness: POLLY PRINCE is a 83 year old woman who lives at home with her son and daughter and gets help from her family who apparently has not been acting right for the last few days. She apparently has not been walking has not been able to move her left side very well. Her speech is gotten worse. She apparently has been able to eat through all of this. She is a diabetic who does not take her medicine. She also has hypertension and does not take her medicine for that. Family does not know of any history of stroke that she has. A CT scan was done of her head which shows a large right MCA territory infarct that occupies nearly the entire right cerebral hemisphere. Family has decided that they do not want to be aggressive because she would not take any medication anyway. They would just like to have her evaluated by physical therapy and speech therapy to see what her present level of function is and to know what she can and cannot eat, and also to have case management help coordinate any DME or services she could get at home. They wanted her to be a DNR. Hospital Course Hospital Course: see problem list Physical Exam Vital Signs: Temp Pulse Resp BP Pulse Ox 98.4 F 70 18 173/82 H 100 05/15/18 07:56 05/15/18 07:56 05/15/18 07:56 05/15/18 07:56 05/15/18 07:56 Intake & Output 05/14/18 05/15/18 05/16/18 06:59 06:59 06:59 Intake Total 1000 Balance 1000 Weight 75.3 kg 73.5 kg General appearance: PRESENT: no acute distress, disheveled, well-developed, well -nourished Head exam: PRESENT: atraumatic, normocephalic Eye exam: ABSENT: conjunctival injection, EOMI, scleral icterus Ear exam: PRESENT: normal external ear exam Mouth exam: PRESENT: dry mucosa Throat exam: PRESENT: other - will not open mouth for me to examine Neck exam: ABSENT: lymphadenopathy, tracheal deviation Respiratory exam: PRESENT: clear to auscultation adolfo, unlabored. ABSENT: wheezes Cardiovascular exam: PRESENT: RRR, systolic murmur Pulses: PRESENT: normal radial pulses GI/Abdominal exam: PRESENT: normal bowel sounds, soft. ABSENT: distended, guarding Rectal exam: PRESENT: deferred Extremities exam: ABSENT: joint swelling, pedal edema Musculoskeletal exam: ABSENT: deformity Neurological exam: PRESENT: altered, aphasic, other - dense left hemiparesis, right arm strength good, can move left leg but not against gravity, rightward gaze. ABSENT: alert, CN II-XII grossly intact Psychiatric exam: ABSENT: anxious Skin exam: PRESENT: dry, intact, warm, other - buttocks and periarea redded and with barrier cream applied Results Impressions: Chest X-Ray 05/11/18 09:26 IMPRESSION: 1. Mild parenchymal density in the left base, may be on the basis of infiltrate/atelectasis. This finding was also suggested on the prior study dated 04/26/2018. Head CT 05/11/18 09:27 IMPRESSION: Large area of hypoattenuation involving the right MCA territory compatible with acute infarct. No evidence of intracranial hemorrhage or significant mass effect. EVIDENCE OF ACUTE STROKE: YES. RIGHT MCA. Qualifiers - * PATIENT BEING DISCHARGED WITH ANY OF THE FOLLOWING DIAGNOSIS: Stroke Stroke Pt being discharged on Anti-thrombolytic therapy?: No Reason(s) for not prescribing Anti-thrombolytic therapy:: Comfort Measure, Hospice Care Stroke Pt being discharged on Anti-coagulation therapy?: No Reason(s) for not prescribing Anti-coagulation therapy:: Comfort Measure, Hospice Care Stroke Pt being discharged on Statins?: No Reason(s) for not prescribing Statins therapy:: Comfort Measure, Hospice Care
[2018-05-15 09:22] VITALS: BP 190/67
== END 2018-05-15 09:25 | disposition hospice, inpatient (51) | DRG 65 ==
LOC: ER 09:08 → EH 12:18 → 3S 15:08
PROVIDERS: ADMIT Family Medicine; ATTEND Family Medicine
DX: I63.511 Cerebral infarction due to unspecified occlusion or stenosis of right middle cerebral artery (principal); G81.94 Hemiplegia, unspecified affecting left nondominant side; I10 Essential (primary) hypertension; E11.9 Type 2 diabetes mellitus without complications; R47.89 Other speech disturbances; Z51.5 Encounter for palliative care; T46.5X6A Underdosing of other antihypertensive drugs, initial encounter; T38.3X6A Underdosing of insulin and oral hypoglycemic [antidiabetic] drugs, initial encounter; Z91.128 Patient's intentional underdosing of medication regimen for other reason; R47.01 Aphasia; E11.65 Type 2 diabetes mellitus with hyperglycemia; R29.810 Facial weakness; I69.391 Dysphagia following cerebral infarction; R13.10 Dysphagia, unspecified; Z66 Do not resuscitate
CPT/HCPCS: 36415; 51701; 70450; 71045; 80053; 81001; 82803; 82962; 83605; 85025; 85610; 87040; 87086; 93005; 93010; 96365; 99285; G8978-GP; G8979-GP; G8987-GO; G8988-GO; G8996-GN; G8997-GN; J2543; J3490; J7030; J7120